=== PATIENT | female | born 1995 | race Caucasian/White ===

== ENCOUNTER 2021-09-02 12:11 | Outpatient (CLI) | payer MEDICAID, SELFPAY ==
[2021-09-02 13:41] LABS: Absolute Lymphocyte Count 2.18 X10^3/uL (0.83-4.51); Absolute Neutrophil Count 5.7 X10^3/uL (2.0-7.7); Basophil# 0.05 X10^3/uL; Basophil% 0.6 % (0-1); Eosinophil# 0.05 X10^3/uL; Eosinophils% 0.6 % (0-5); Hematocrit 42.6 % (37-47); Hemoglobin 14.3 g/dL (12.0-15.0); Lymphocyte # 2.18 X10^3/ul (0.83-4.51); Lymphocyte % 25.8 % (19-41); Mean Corp Hgb Conc 33.6 g/dL (32-36); Mean Corpuscular Hgb 28.8 pg (27.0-32.0); Mean Corpuscular Volume 85.9 fL (81-99); Monocyte# 0.44 X10^3/uL; Monocyte% 5.2 % (0-10); NRBC Flagged by Analyzer 0 % (0-5); Neutrophil % 67.6 % (47-70); Platelet Count 260 K/mm3 (150-450); RBC Distribution Width CV 12.4 % (11.6-14.6); RBC Distribution Width SD 38.7 fl (35.1-43.9); Red Blood Count 4.96 M/mm3 (4.2-5.4); White Blood Count 8.4 K/mm3 (4.4-11.0)
[2021-09-02 14:26] LABS: HIV - WCH Non-Reactive (Nonreactive); Hepatitis B Surface Antigen Non-Reactive (Nonreactive); Hepatitis C Antibody Non-Reactive (Nonreactive); Rubella IgG Reactive (Nonreactive); Syphilis Antibodies Non-reactive
[2021-09-05 06:09] LABS: Chlamydia By Nucleic Acid AMP Negative (Negative)
[2021-09-05 13:50] LABS: Gonococcus By Nucleic Acid AMP Negative (Negative)
[2021-09-06 16:56] LABS: HPV Reflexed? NOT INDICATED
== END 2021-09-02 23:59 | disposition home or self-care (01) ==
LOC: WOBLAB 12:15
PROVIDERS: Visit Provider Obstetrics & Gynecology
DX: Z34.81 Encounter for supervision of other normal pregnancy, first trimester (principal)
CPT/HCPCS: 36415; 85025; 86703; 86762; 86780; 86803; 87086; 87088; 87340; 87491; 87591; 88175; G0145

== ENCOUNTER → 2021-12-06 | Outpatient (CLI) | payer MEDICAID, SELFPAY | END | disposition home or self-care (01) | PROVIDERS: Visit Provider Student in an Organized Health Care Education/Training Program | DX: N76.0 Acute vaginitis (principal); Z11.3 Encounter for screening for infections with a predominantly sexual mode of transmission ==

== ENCOUNTER → 2022-03-25 | Outpatient (CLI) | payer MEDICAID, SELFPAY ==
[2022-03-25 17:19] LABS: Absolute Lymphocyte Count 2.08 X10^3/uL (0.83-4.51); Absolute Neutrophil Count 8.5 X10^3/uL (2.0-7.7); Basophil# 0.04 X10^3/uL; Basophil% 0.3 % (0-1); Eosinophil# 0.04 X10^3/uL; Eosinophils% 0.3 % (0-5); Hematocrit 38.6 % (37-47); Hemoglobin 12.8 g/dL (12.0-15.0); Lymphocyte # 2.08 X10^3/ul (0.83-4.51); Lymphocyte % 18.1 % (19-41); Mean Corp Hgb Conc 33.2 g/dL (32-36); Mean Corpuscular Hgb 28.8 pg (27.0-32.0); Mean Corpuscular Volume 86.9 fL (81-99); Mean Platelet Vol. 11.6 fl (6.2-12.0); NRBC Flagged by Analyzer 0 % (0-5); Platelet Count 226 K/mm3 (150-450); RBC Distribution Width CV 12.7 % (11.6-14.6); RBC Distribution Width SD 40.3 fl (35.1-43.9); Red Blood Count 4.44 M/mm3 (4.2-5.4); White Blood Count 11.5 K/mm3 (4.4-11.0)
[2022-03-25 18:30] LABS: Glucose Challenge Gest 1H 50g 96 mg/dL (70-140)
[2022-03-25 19:04] LABS: HIV - WCH Non-Reactive (Nonreactive); Hepatitis B Surface Antibody Reactive; Syphilis Antibodies Non-reactive
[2022-03-27 06:08] LABS: HEPATITIS B SURFACE AG Negative (Negative); Hep C Antibodies <0.1 s/co ratio (0.0-0.9); Hepatitis A IgM Antibody Negative (Negative); Hepatitis B Core AB IgM Negative (Negative)
[2022-03-27 09:57] LABS: Hepatitis A AB, Total Negative (Negative)
[2022-03-27 22:07] LABS: Chlamydia By Nucleic Acid AMP Negative (Negative)
[2022-03-29 14:58] LABS: Gonococcus By Nucleic Acid AMP Negative (Negative)
== END | disposition home or self-care (01) ==
LOC: WOBLAB 16:44
PROVIDERS: Visit Provider Obstetrics & Gynecology
DX: Z34.83 Encounter for supervision of other normal pregnancy, third trimester (principal); Z36.85 Encounter for antenatal screening for Streptococcus B
CPT/HCPCS: 36415; 80074; 82950; 85025; 86703; 86706; 86708; 86780; 87081; 87491; 87591

== ENCOUNTER 2022-04-15 02:18 | Inpatient (IN) | payer MEDICAID, SELFPAY ==
[2022-04-15] VITALS (47 sets, daily range): BP systolic 110–148; BP diastolic 69–87; PULSE 65–105; TEMP 35.7–37.2; O2SAT 93–100; BMI 29.3
[2022-04-15 02:15] LABS: ROM Internal Control Test YES-OK TO RESULT pt. (Internal QC)
[2022-04-15 02:16] LABS: ROM Patient Test POSITIVE (Negative)
[2022-04-15] MEDS: Lactated Ringers 1,000 ML 50 ML IV (03:25)
[2022-04-15 03:47] LABS: Absolute Lymphocyte Count 3.63 X10^3/uL (0.83-4.51); Absolute Neutrophil Count 7.6 X10^3/uL (2.0-7.7); Basophil# 0.06 X10^3/uL; Basophil% 0.5 % (0-1); Eosinophils% 0.8 % (0-5); Hematocrit 39.9 % (37-47); Hemoglobin 13.4 g/dL (12.0-15.0); Lymphocyte # 3.63 X10^3/ul (0.83-4.51); Lymphocyte % 29.3 % (19-41); Mean Corp Hgb Conc 33.6 g/dL (32-36); Mean Corpuscular Hgb 28.6 pg (27.0-32.0); Mean Corpuscular Volume 85.3 fL (81-99); Mean Platelet Vol. 11.8 fl (6.2-12.0); Monocyte# 0.92 X10^3/uL; Monocyte% 7.4 % (0-10); NRBC Flagged by Analyzer 0 % (0-5); Neutrophil # 7.63 X10^3/uL (2.7-7.7); Neutrophil % 61.7 % (47-70); Platelet Count 238 K/mm3 (150-450); RBC Distribution Width CV 13.2 % (11.6-14.6); RBC Distribution Width SD 40.5 fl (35.1-43.9); Red Blood Count 4.68 M/mm3 (4.2-5.4); White Blood Count 12.4 K/mm3 (4.4-11.0)
[2022-04-15] MEDS: 0.9% Saline Lock 10 ML Syringe IV ×3 (04:11→23:56)
--- NOTE | 2022-04-15 05:31 | HP.PCM.OB_ITS ---
History and Physical Date of Admission: 04/15/22 HPI: 26-year-old at 38/5 weeks, admitted for prelabor rupture of membranes. Reports leaking of fluid starting last evening around 2230. Denies regular contractions, vaginal bleeding. Reports movement. Denies headache or vision changes, chest pain or shortness of breath, nausea or vomiting, fevers or chills, diarrhea or constipation. complicated by: Poor care (patient had not been seen from 20 weeks to 33 weeks). History of P PROM with delivery at 34 weeks (patient had been on progesterone which was stopped at the end of the first trimester). History of incident at around age 14-16 where patient had numbness on left side of her body for 1 maybe 1 to 2 days. Patient states she was admitted and had lots of testing, there was no cause found, resolved spontaneously. Patient states she never was on a blood thinner or aspirin, no lingering deficits, this is never happened since that time. Patient has never been on anticoagulation previously. [employer] history G1: First trimester SAB G2: Full-term G3: First trimester SAB G4: 34-week . PPROM with admission and delivery in [place]. G5: Current Medical history: 1. Numbness incident at age 14 or 16 as stated above Surgical history: 1. Age 16 hernia repair Family history: Noncontributory, no history of blood clots or bleeding disorders Social history: Former tobacco user, denies alcohol or drug use Medications: vitamin Allergies: No known drug allergies Review of system: Negative otherwise stated above Physical exam: 119/79 BP, pulse 73 General: No acute distress, comfortable in bed HEENT: Normocephalic/atraumatic, PERRLA Cardiorespiratory: No increased effort Abdomen: Soft, nontender, gravid Extremities: No edema Cervical exam: Per RN Neurologic: No focal deficits, cranial nerves II through XII grossly intact Musculoskeletal: Strength 5 out of 5 throughout all extremities heart rate: 115/mod marcelino/+acel/no decel [place]: irregular Intermittent auscultation at this time. NST reactive on admission. labs GBS negative on 03/25 HIV/hepatitis B/hepatitis C negative and negative on repeat in March Syphilis negative and negative on repeat Gonorrhea/chlamydia negative A positive Assessment & Plan Assessment/Plan (1) Spontaneous rupture of membranes: PLAN: at 38/5 weeks, admitted for prelabor rupture of membranes. Complicated by: Poor care, history of delivery, history of left numbness as a teenager. ?Admit to labor and delivery ?Expectant management at this time. We will recheck in the morning, if no cervical change will consider Pitocin augmentation at the time. ?Intermittent auscultation at this time ?In regards to incident of left-sided numbness, patient has had no other episodes of this and has had no findings of a cause, no post episode lingering effects. Plan expectant management at this time.
[2022-04-15] MEDS: Oxytocin 15 Units/NS 250ml 15 UNITS/250 ML IV.SOLN 2 UNITS IV (11:23)
--- NOTE | 2022-04-15 22:36 | EX.PCM.OBRPT ---
Vaginal Delivery Operative Information Date of Procedure: 04/15/22 Pre-Operative Diagnosis: [place] intrauterine , prelabor rupture of membranes Post-Operative Diagnosis: [place] intrauterine , prelabor rupture of membranes Surgery / Procedure Performed: Spontaneous Vaginal Delivery Type of Anesthesia: None Estimated Blood Loss: 250cc Findings Description of Procedure: Spontaneous vaginal delivery viable male. No nuchal cord. Baby to mom. Cord clamped and cut. Spontaneous delivery of placenta. No lacerations. A Gender: Male (1 minute): 8 (5 minute): 9
[2022-04-15] MEDS: Ondansetron 4 MG/2 ML Vial IV (23:56)
[2022-04-16] VITALS (13 sets, daily range): BP systolic 95–126; BP diastolic 42–70; PULSE 61–79; RESP 14–18; TEMP 36.1–37.2; O2SAT 97–100
[2022-04-16] MEDS: Ibuprofen 600 MG Tablet PO ×3 (01:35→17:09)
--- NOTE | 2022-04-16 05:06 | PCM.PN.OB ---
Subjective Subjective Having some cramping after breast-feeding, ibuprofen and Tylenol is helping. Lochia minimal. No other issues or concerns today. Objective Data Objective Data Vital Signs: Vital Signs Temp Pulse Resp BP Pulse Ox O2 Del Method 97.5 F L 61 14 95/42 L 99 Room Air 04/16/22 04:35 04/16/22 04:35 04/16/22 04:35 04/16/22 04:35 04/16/22 00:25 04/16/22 04:35 Oxygen Delivery Method Room Air Weight: 75.1 kg Body Mass Index (BMI) 29.3 Intake & Output: Intake and Output for Last 24 Hours 04/14/22 04/15/22 04/16/22 23:59 23:59 23:59 Intake Total 867.50 / 867.50 Output Total 200 / 200 800 / 800 Balance 667.50 / 667.50 -800 / -800 Lab / Micro Data Attestation: I reviewed the patient's lab results. Result Diagrams: 04/15/22 03:25 Micro: Microbiology 04/15/22 03:25 Nasal Secretion SARS-CoV-2 Antigen (Rapid) - Final Physical Exam Const alert, oriented x3 and no apparent distress HEENT normocephalic Head and Scalp: atraumatic Neck full ROM Resp normal respiratory effort Cardio regular rate GI normal to inspection, nondistended, normoactive bowel sounds GI Narrative: Uterus 2 cm below umbilicus Back/Spine normal ROM Extremity normal to inspection Extremity Narrative: Minimal pedal edema Neuro no focal motor deficits and no sensory deficits noted Psych mental status grossly normal and affect normal Assessment & Plan (1) Vaginal delivery: PLAN: day 1 status post . Breast-feeding. Complicated by poor care. Home tomorrow.
[2022-04-16] MEDS: Acetaminophen 500 MG Tablet 1000 MG PO ×2 (05:18→22:26)
[2022-04-17 01:45] VITALS: BP 107/56; PULSE 67; RESP 17; TEMP 36.8; O2SAT 98
[2022-04-17] MEDS: Ibuprofen 600 MG Tablet PO ×2 (01:45→08:30)
--- NOTE | 2022-04-17 03:57 | NURSING ---
This RN scanned in motrin at 0145 that was given during downtime.
[2022-04-17] MEDS: Acetaminophen 500 MG Tablet 1000 MG PO (04:49)
[2022-04-17 08:00] VITALS: BP 114/69; PULSE 68; RESP 12; TEMP 36.6; O2SAT 97
--- NOTE | 2022-04-17 08:27 | PCM.PN.OB ---
Subjective Subjective No acute overnight events. No complaints today. Objective Data Objective Data Vital Signs: Vital Signs Temp Pulse Resp BP Pulse Ox O2 Del Method 98.2 F 67 17 107/56 L 98 Room Air 04/17/22 01:45 04/17/22 01:45 04/17/22 01:45 04/17/22 01:45 04/17/22 01:45 04/17/22 01:45 Oxygen Delivery Method Room Air Weight: 75.1 kg Body Mass Index (BMI) 29.3 Intake & Output: Intake and Output for Last 24 Hours 04/15/22 04/16/22 04/17/22 23:59 23:59 23:59 Intake Total 867.50 / 867.50 Output Total 200 / 200 800 / 800 Balance 667.50 / 667.50 -800 / -800 Lab / Micro Data Result Diagrams: 04/15/22 03:25 Micro: Microbiology 04/15/22 03:25 Nasal Secretion SARS-CoV-2 Antigen (Rapid) - Final Physical Exam Const alert, oriented x3 and no apparent distress HEENT normocephalic Head and Scalp: atraumatic Neck full ROM Resp normal respiratory effort Cardio regular rate GI normal to inspection, nondistended, normoactive bowel sounds GI Narrative: Uterus 2 cm below umbilicus Back/Spine normal ROM Extremity normal to inspection Extremity Narrative: Minimal pedal edema Neuro no focal motor deficits and no sensory deficits noted Psych mental status grossly normal and affect normal Assessment & Plan (1) Vaginal delivery: PLAN: day 2 status post . Breast-feeding. Home today.
--- NOTE | 2022-04-17 08:28 | DCINST_ITS ---
Discharge Instructions Diet Discharge Diet: No restrictions Activity Discharge Activity: Return to Normal Activity and May Shower May resume sexual activity in: 4-6 weeks Weight Bearing Status: Weight bearing as tolerated Lifting Restrictions: No greater than 25 pounds Dressing / Incision Call your doctor if you observe: Fever of 101 or Higher, Change in Color, Inability to urinate, Using more than 1 pad per hour, Shortness of breath, Dizziness, Swelling in the ankles, Chest pain and Calf discomfort Follow Up Care Please Follow Up With: Patric Levin MD When: 4-6 week visit Test Results: Test results from this visit will be discussed in further detail at your follow- up appointment, if applicable. Discharge Plan Admission Admit Date/Time: 04/15/22 02:18 Primary Reason for Your Visit: vaginal delivery Attending Provider: Lissette Levin Discharge Orders/Prescriptions Prescriptions: No Action 1 mg Tablet 1 tab PO DAILY Disposition Disposition (needs filled in before D/C Order can be placed): Home, Self Care
[2022-04-17 13:08] VITALS: BP 119/81; PULSE 79; RESP 12; TEMP 36.7
== END 2022-04-17 15:20 | disposition home or self-care (01) | DRG 560 ==
LOC: WPOUT 02:19 → WP 02:19
PROVIDERS: Admitting Provider Student in an Organized Health Care Education/Training Program; Visit Provider Student in an Organized Health Care Education/Training Program
DX: O42.02 Full-term premature rupture of membranes, onset of labor within 24 hours of rupture (principal); Z37.0 Single live birth; Z3A.38 38 weeks gestation of pregnancy; Z87.59 Personal history of other complications of pregnancy, childbirth and the puerperium; Z87.891 Personal history of nicotine dependence
CPT/HCPCS: 59025; 59050; 84112; 85025; 86850; 86900; 86901; 87426; 99218; J7120; A4216; G0378; J2405